=== PATIENT | female | born 1965 | race Caucasian/White ===

== ENCOUNTER → 2016-11-28 | Outpatient (CLI) | payer OTHER ==
[~2016-11-28] MED LIST: NEXIUM40 MG PO
== END | disposition home or self-care (01) ==
LOC: NUC 07:41
DX: R10.11 Right upper quadrant pain (principal)
CPT/HCPCS: 78227; A9537; J2805

== ENCOUNTER 2017-08-23 14:13 | Emergency (ER) | payer OTHER ==
[~2017-08-23] VITALS: Ht 154.9 cm; Wt 72.3 kg
[2017-08-23 15:04] LABS: MCH 32.2 PG (29.0-34.0); MCHC 33.7 G/DL (30.0-36.0); MCV 95.8 FL (83-99); MEAN PLAT.VOLUME 10.6 uM^3 (9.5-12.4); PLATELET COUNT 247 K/uL (156-360); RBC DIS.WIDTH-CV 12.5 % (11.8-14.6); RBC DIS.WIDTH-SD 44.1 % (39-53); RED BLOOD COUNT 4.28 M/uL (3.80-5.20)
[2017-08-23 15:11] LABS: CHLORIDE 105 mEq/L (99-109); POTASSIUM 3.9 mEq/L (3.7-5.4); SODIUM 139 mEq/L (136-147)
[2017-08-23 15:14] LABS: GLUCOSE 96 mg/dL (70-99)
[2017-08-23 15:15] LABS: ANION GAP 9 MEQ/L (2-14)
[2017-08-23 15:16] LABS: TOTAL BILIRUBIN 0.5 mg/dL (0.0-1.0)
[2017-08-23 15:17] LABS: ALKALINE PHOSPHATASE 78 IU/L (3-129); GFR ESTIMATE (CALCULATED) > 59 mL/min/
[2017-08-23 15:18] LABS: UREA NITROGEN (BUN) 9 mg/dL (9-23)
[2017-08-23 15:27] LABS: QUANTITATIVE HCG < 4.0 MIU/ML
[2017-08-23 15:39] LABS: ADD MIUA? NO; BILIRUBIN NEGATIVE; BLOOD NEGATIVE; COLOR YELLOW ((YELLOW)); GLUCOSE (STRIP) NEGATIVE; KETONES NEGATIVE; LEUKOCYTES NEGATIVE; NITRITE NEGATIVE; PROTEIN (STRIP) NEGATIVE; SPECIFIC GRAVITY 1.009 (1.000-1.030); UCUL ADDED? NO; UROBILINOGEN 0.2 MG/DL (0.2-1.0)
[2017-08-23 16:08] LABS: LIPASE 17 U/L (1.0-51.0)
[2017-08-23] MEDS ORDERED: ZOFRAN ODT4 MG PO (17:42)
[2017-08-23] MEDS ORDERED: LEVSIN-SL0.125 MG SL (17:42)
[2017-08-23 17:55] VITALS: BP 112/74
== END 2017-08-23 17:56 | disposition home or self-care (01) ==
LOC: EME 14:13
DX: R10.33 Periumbilical pain (principal); K80.20 Calculus of gallbladder without cholecystitis without obstruction; R14.0 Abdominal distension (gaseous); E03.9 Hypothyroidism, unspecified; K21.9 Gastro-esophageal reflux disease without esophagitis; Z90.711 Acquired absence of uterus with remaining cervical stump; F17.200 Nicotine dependence, unspecified, uncomplicated
CPT/HCPCS: 74177; 80053; 81003; 83690; 84702; 85027; 99281; 99284; J7030